=== PATIENT | female | born 1975 | race American Indian/Alaskan Native ===

== ENCOUNTER 2018-07-19 12:05 | Outpatient (CLI) | payer BC | END 2018-07-19 12:06 | disposition home or self-care (01) | LOC: C.PAT 12:05 | DX: D17.9 Benign lipomatous neoplasm, unspecified (principal) ==

== ENCOUNTER 2018-07-30 10:58 | Day surgery (SDC) | payer BC ==
[2018-07-19 12:23] VITALS: BMI 32.3
[2018-07-30] MEDS ORDERED: Lidocaine/Epinephrine 1% 1:100000 10 ML IJ ONE (12:24)
[2018-07-30] MEDS ORDERED: Bupivacaine 0.25% 20 ML INJ IJ ONE (12:24)
[2018-07-30] MEDS ORDERED: ceFAZolin 1 gm in NS 2 GM/200 ML BAG IVPB ONE (12:34)
[2018-07-30] MEDS ORDERED: Midazolam 2 MG/2 ML VIAL ONE (12:44)
[2018-07-30] MEDS ORDERED: Propofol 10 mg/ml Inj (20 ML) ONE ×2 (12:47→12:56)
[2018-07-30] MEDS ORDERED: Lactated Ringer's 1,000 ML IV ONE (14:39)
[2018-07-30] MEDS: HYDROmorphone 0.5 mg/0.5 ml ISec IVP PRN ×2 (14:58→15:23)
--- NOTE | 2018-07-30 15:26 | PCM.SURG1 ---
Surgeon's Initial Post Op Note - Surgeon's Notes Surgeon: MD Cayla Respiratory Equipment Assistant: Armin PGY3 Pre-Operative Diagnosis: Upper back mass Operative Findings: upper back mass Post-Operative Diagnosis: Upper Back mass Operation Performed: Excision of upper back mass Specimen/Specimens Removed: upper back mass Estimated Blood Loss: EBL {In ML}: 10 Date of Surgery/Procedure: 07/30/18 Time of Surgery/Procedure: 14:00
[2018-07-30 16:12] VITALS: RESP 18
[2018-07-30 17:01] VITALS: BP 120/89; PULSE 74; TEMP 97.7; O2SAT 98
--- NOTE | 2018-08-03 04:43 | OP ---
PROCEDURE DATE: 07/30/2018 PREOPERATIVE DIAGNOSES: 1. Large lipoma of the upper mid back, approximately 10 x 10 cm. 2. Morbid obesity. 3. Excessive redundant skin and subcutaneous tissue of upper mid back due to lipoma. POSTOPERATIVE DIAGNOSES: 1. Large lipoma of the upper mid back, approximately 10 x 10 cm. 2. Morbid obesity. 3. Excessive redundant skin and subcutaneous tissue of upper mid back due to lipoma. PROCEDURES DONE: 1. Excision of the large lipoma of the upper mid back, approximately 10 x 10 cm in size. 2. Excision of the redundant skin and subcutaneous tissue of the upper back. 3. Complex layered closure of the wound of mid upper back, approximately 10 x 4 x 4 cm in size. ANESTHESIA: General endotracheal tube anesthesia. ESTIMATED BLOOD LOSS: Around 20 mL. DRAIN: None. PATHOLOGY: Large lipoma of the mid upper back as well as redundant skin was sent for the pathology. COMPLICATIONS: None. INTRAOPERATIVE FINDINGS: The patient had a large lipoma of the mid upper back, diffuse. There was excessive redundant skin and subcutaneous tissue of the mid upper back due to the large lipoma and to prevent seroma as well as hematoma and other fluid collection, the large cavity was closed in multiple layers to prevent the complication. DESCRIPTION OF PROCEDURE: On intraoperative steps, this is a 43-year-old female who was diagnosed with a large lipoma of the mid back. The patient was consented for the excision, brought to the OR, placed supine on the operating table. After induction of the anesthesia, the mid back was prepped and draped in the usual sterile fashion. An elliptical incision was made, and upper and lower flap was created. Dissection was carried down deep up to the underlying chest wall as well as the fascia superiorly, medially, inferiorly, laterally. The large lipoma was completely excised and was sent off the table for the pathology. Now, due to the excessive redundant skin of the back, the skin was excised approximately 10 x 5 cm in size on the both flap sides. Proper hemostasis was achieved. Underlying deep cavity was closed in a multilayer to prevent the seroma, hematoma or fluid collection, and the deeper subcu was sutured to the flap. The superficial subcu was sutured with 2-0 Vicryl, 3-0 Vicryl as well as 4-0 Monocryl and 4-0 nylon interrupted suture, and dry sterile dressing was applied. The patient tolerated the procedure well. Count of instrument and gauze was correct. There was no apparent complication. Bernard Kulkarni MD
== END 2018-07-30 16:53 | disposition home or self-care (01) ==
LOC: C.SDS 10:58
PROVIDERS: ATTEND Surgery Surgical Critical Care
DX: D17.1 Benign lipomatous neoplasm of skin and subcutaneous tissue of trunk (principal); E66.01 Morbid (severe) obesity due to excess calories; L98.7 Excessive and redundant skin and subcutaneous tissue
CPT/HCPCS: 11406; 13101; 88304; J0690; J1170; J2250; J2704; J3010; J7120